=== PATIENT | female | born 1980 | race Caucasian/White ===

== ENCOUNTER 2017-10-06 16:19 | Inpatient (IN) | payer OTHER ==
[~2017-10-06] VITALS: Ht 165.1 cm; Wt 86.2 kg
[2017-10-06] MEDS ORDERED: PREN-546 PO (16:25)
[2017-10-06] MEDS ORDERED: TERBUTALINE 1 MG/ML VIAL SUBQ SCH (16:30)
[2017-10-06] MEDS ORDERED: TERBUTALINE 1 MG/ML VIAL SUBQ ONE (16:44)
[2017-10-06 17:04] LABS: BASOPHILS # (AUTO) 0.1 K/uL (0.00-0.22); BASOPHILS % (AUTO) 0.5 % (0.0-2.0); EOSINOPHILS % (AUTO) 0.3 % (0.0-4.0); HEMATOCRIT 37.4 % (36-48); HEMOGLOBIN 12.1 g/dL (12.0-16.0); LYMPHOCYTES % (AUTO) 8.7 % (20.5-51.1); MEAN CORPUSCULAR HEMOGLOBIN 28 pg (27-31); MEAN CORPUSCULAR HGB CONC 33 g/dL (33-37); MEAN CORPUSCULAR VOLUME 87.5 fL (80-94); MONOCYTES # (AUTO) 0.5 K/uL (0.8-1.0); MONOCYTES % (AUTO) 4.2 % (1.7-9.3); NEUTROPHILS # (AUTO) 10.1 K/uL (1.8-7.7); NEUTROPHILS % (AUTO) 86.3 % (42.2-75.2); PLATELET COUNT (AUTO) 216 K/uL (140-450); RED BLOOD CELL COUNT(AUTO) 4.27 MIL/uL (4.20-5.40); RED CELL DISTRIBUTION WIDTH 13.4 % (11.6-13.7); WHITE BLOOD COUNT (AUTO) 11.7 K/uL (4.8-10.8)
[2017-10-06] MEDS: LACTATED RINGERS 1,000 ML IV SCH (17:15)
[2017-10-06 17:30] LABS: PROTHROMBIN TIME 9.5 secs (10.8-13.4)
[2017-10-06 18:05] LABS: APPEARANCE,URINE CLEAR (CLEAR); BILIRUBIN,URINE NEGATIVE (NEGATIVE); BLOOD, URINE TRACE-I (NEGATIVE); COLOR,URINE YELLOW (YELLOW); LEUKOCYTE ESTERASE ,URINE NEGATIVE (NEGATIVE); NITRITE, URINE NEGATIVE (NEGATIVE); PH,URINE 6.5 (5.0-9.0); UGLUCOSE NEGATIVE (NEGATIVE)
[2017-10-06 18:16] LABS: RBC,URINE 11-20 (MOD) /HPF (0-5); WBC,URINE 6-15 (FEW) /HPF (0-5)
[2017-10-06] MEDS ORDERED: NALBUPHINE 10 MG/ML AMP IVP ONE (20:00)
[2017-10-06] MEDS ORDERED: BETAMETH ACET/BETAMETH NA PH 30 MG/5 ML VIAL IM ONE (22:48)
[2017-10-06] MEDS: BETAMETH ACET/BETAMETH NA PH 30 MG/5 ML VIAL IM SCH (22:55)
[2017-10-07] MEDS: LACTATED RINGERS 1,000 ML IV SCH ×4 (00:02→23:00)
[2017-10-07] MEDS ORDERED: NIFEdipine 10 MG CAPLF PO SCH (08:30)
[2017-10-07] MEDS ORDERED: NIFEdipine 10 MG CAPLF ONE ×4 (08:31→20:57)
[2017-10-07] MEDS: NIFEdipine 10 MG CAPLF PO SCH ×3 (09:35→21:35)
[2017-10-07] MEDS ORDERED: BETAMETH ACET/BETAMETH NA PH 30 MG/5 ML VIAL IM ONE (10:52)
[2017-10-07] MEDS: BETAMETH ACET/BETAMETH NA PH 30 MG/5 ML VIAL IM SCH (10:57)
[2017-10-07] MEDS ORDERED: ACETAMINOPHEN 325 MG TAB PO PRN (14:30)
[2017-10-07] MEDS ORDERED: ACETAMINOPHEN 325 MG TAB ONE (15:41)
[2017-10-08] MEDS: LACTATED RINGERS 1,000 ML IV SCH (05:45)
== END 2017-10-09 14:45 | disposition home or self-care (01) | DRG 563 ==
LOC: MLD 16:19 → OBSVTOIN 10-07 12:01 → MFCC 10-07 14:01
PROVIDERS: ADMIT Obstetrics & Gynecology; ATTEND Obstetrics & Gynecology
DX: O60.03 Preterm labor without delivery, third trimester (principal); O34.219 Maternal care for unspecified type scar from previous cesarean delivery; Z3A.35 35 weeks gestation of pregnancy
CPT/HCPCS: 36415; 76770; 76805; 81001; 85025; 85379; 85384; 85610; 85730; 86762; 87086; 87340; G0378; J0702; J3105; J7120; Q0092

== ENCOUNTER 2017-10-24 11:56 | Observation (INO) | payer OTHER ==
[~2017-10-24] VITALS: Ht 160 cm; Wt 81.2 kg
[~2017-10-24 11:56] MED LIST: PREN-546 PO
[2017-10-24] MEDS ORDERED: PREN-546 PO (12:18)
[2017-10-24] MEDS ORDERED: TERBUTALINE 1 MG/ML VIAL SUBQ ONE (13:48)
[2017-10-24] MEDS ORDERED: TERBUTALINE 1 MG/ML VIAL SUBQ SCH (14:05)
== END 2017-10-24 15:59 | disposition home or self-care (01) ==
LOC: MLD 11:56
PROVIDERS: ADMIT Obstetrics & Gynecology; ATTEND Obstetrics & Gynecology
DX: O26.893 Other specified pregnancy related conditions, third trimester (principal); R10.9 Unspecified abdominal pain; Z3A.36 36 weeks gestation of pregnancy
CPT/HCPCS: 59025; 76805; 76819; 81000; G0378; J3105; Q0092

== ENCOUNTER 2017-10-28 15:27 | Observation (INO) | payer OTHER ==
[2017-10-28 18:42] VITALS: BP 121/60
[2017-10-28] MEDS ORDERED: BRE5 PO (18:50)
== END 2017-10-28 19:25 | disposition home or self-care (01) ==
LOC: MLD 15:27
PROVIDERS: ADMIT Obstetrics & Gynecology; ATTEND Obstetrics & Gynecology
DX: O26.893 Other specified pregnancy related conditions, third trimester (principal); R10.9 Unspecified abdominal pain; Z3A.38 38 weeks gestation of pregnancy
CPT/HCPCS: 76815; G0378; Q0092; 51702; 81000

== ENCOUNTER 2017-11-01 08:15 | Inpatient (IN) | payer OTHER ==
[~2017-11-01] VITALS: Ht 165.1 cm; Wt 88.0 kg
[~2017-11-01 08:15] MED LIST changes: +BRE5 PO
[2017-11-01] MEDS ORDERED: LACTATED RINGERS 1,000 ML IV SCH (08:23)
[2017-11-01] MEDS ORDERED: CITRIC ACID/SODIUM CITRATE 30 ML UDC PO SCH (09:04)
[2017-11-01 10:31] LABS: BASOPHILS # (AUTO) 0.1 K/uL (0.00-0.22); BASOPHILS % (AUTO) 0.5 % (0.0-2.0); EOSINOPHILS # (AUTO) 0.2 K/uL (0-0.4); EOSINOPHILS % (AUTO) 1.7 % (0.0-4.0); HEMATOCRIT 35.3 % (36-48); HEMOGLOBIN 11.4 g/dL (12.0-16.0); LYMPHOCYTES # (AUTO) 2.4 K/uL (2.5-16.5); LYMPHOCYTES % (AUTO) 17.9 % (20.5-51.1); MEAN CORPUSCULAR HEMOGLOBIN 28 pg (27-31); MEAN CORPUSCULAR HGB CONC 32 g/dL (33-37); MEAN CORPUSCULAR VOLUME 87.4 fL (80-94); MONOCYTES # (AUTO) 0.7 K/uL (0.8-1.0); MONOCYTES % (AUTO) 5.1 % (1.7-9.3); NEUTROPHILS % (AUTO) 74.8 % (42.2-75.2); PLATELET COUNT (AUTO) 219 K/uL (140-450); RED BLOOD CELL COUNT(AUTO) 4.04 MIL/uL (4.20-5.40); RED CELL DISTRIBUTION WIDTH 13.9 % (11.6-13.7); WHITE BLOOD COUNT (AUTO) 13.4 K/uL (4.8-10.8)
[2017-11-01 10:53] LABS: APPEARANCE,URINE CLEAR (CLEAR); BILIRUBIN,URINE NEGATIVE (NEGATIVE); BLOOD, URINE NEGATIVE (NEGATIVE); COLOR,URINE YELLOW (YELLOW); LEUKOCYTE ESTERASE ,URINE NEGATIVE (NEGATIVE); NITRITE, URINE NEGATIVE (NEGATIVE); UGLUCOSE NEGATIVE (NEGATIVE)
[2017-11-01 10:58] LABS: ANION GAP 14.5 (8-16); CARBON DIOXIDE 23.4 mmol/L (21-32); CREATININE 0.5 mg/dL (0.6-1.3); POTASSIUM 3.9 mmol/L (3.5-5.1)
[2017-11-01 11:05] LABS: ALBUMIN 2.1 g/dL (3.4-5.0); TOTAL BILIRUBIN 0.2 mg/dL (0.0-1.0)
[2017-11-01 11:19] LABS: RBC,URINE NONE SEEN /HPF (0-5); WBC,URINE 0-5 (RARE) /HPF (0-5)
[2017-11-01] MEDS ORDERED: MORPHINE PRES FREE 2 MG/2 ML 2 mL UD SYRINGE ONE (11:43)
[2017-11-01] MEDS ORDERED: BUPIVACAINE/DEXT 0.75% SPINAL 2 ML AMP INJ ONE (11:43)
[2017-11-01] MEDS ORDERED: fentaNYL 0.05 MG/ML VIAL ONE (11:43)
[2017-11-01] MEDS ORDERED: ePHEDrine 50 MG/ML VIAL ONE (11:46)
[2017-11-01] MEDS ORDERED: ONDANSETRON 4 MG/2 ML VIAL IVP PRN ×2 (12:30)
[2017-11-01] MEDS ORDERED: KETOROLAC 30 MG/ML VIAL IVP PRN (12:30)
[2017-11-01] MEDS ORDERED: NALBUPHINE 10 MG/ML AMP IVP PRN (12:30)
[2017-11-01] MEDS ORDERED: NALOXONE 0.4 MG/ML VIAL IVP PRN ×3 (12:30)
[2017-11-01] MEDS ORDERED: diphenhydrAMINE 50 MG/ML VIAL IVP PRN (12:30)
[2017-11-01] MEDS ORDERED: OXYTOCIN 10 UNITS/ML VIAL ONE (13:02)
[2017-11-01] MEDS ORDERED: diphenhydrAMINE 50 MG/ML VIAL ONE (13:04)
[2017-11-01] MEDS ORDERED: ONDANSETRON 4 MG/2 ML VIAL ONE (14:07)
[2017-11-01] MEDS ORDERED: OXYTOCIN 20 UNITS in LACTATED RINGERS 1,000 ML IV SCH (14:17)
[2017-11-01] MEDS: OXYTOCIN 20 UNITS/LR PREMIX 1,000 ML IV ONE ×2 (14:18→14:30)
[2017-11-01] MEDS ORDERED: MEASLES, MUMPS, AND RUBELLA 1 VIAL SQVAC PRN (14:20)
[2017-11-01] MEDS ORDERED: HYDROmorphone 1 MG/ML AMP IVP PRN (14:20)
--- NOTE | 2017-11-02 08:31 | NUR ---
PATIENT HAS BEEN SCREENED AND CATEGORIZED LOW NUTRITION RISK. PATIENT WILL BE SEEN WITHIN 7 DAYS OF ADMISSION. 11/07/[address]
[2017-11-02 08:34] LABS: BASOPHILS % (AUTO) 0.3 % (0.0-2.0); EOSINOPHILS # (AUTO) 0.1 K/uL (0-0.4); EOSINOPHILS % (AUTO) 0.5 % (0.0-4.0); HEMATOCRIT 34.6 % (36-48); HEMOGLOBIN 11.1 g/dL (12.0-16.0); LYMPHOCYTES # (AUTO) 1.7 K/uL (2.5-16.5); LYMPHOCYTES % (AUTO) 11.1 % (20.5-51.1); MEAN CORPUSCULAR HEMOGLOBIN 28 pg (27-31); MEAN CORPUSCULAR HGB CONC 32 g/dL (33-37); MEAN CORPUSCULAR VOLUME 86.8 fL (80-94); MONOCYTES # (AUTO) 0.6 K/uL (0.8-1.0); MONOCYTES % (AUTO) 3.8 % (1.7-9.3); NEUTROPHILS # (AUTO) 13.3 K/uL (1.8-7.7); NEUTROPHILS % (AUTO) 84.3 % (42.2-75.2); PLATELET COUNT (AUTO) 209 K/uL (140-450); RED BLOOD CELL COUNT(AUTO) 3.98 MIL/uL (4.20-5.40); WHITE BLOOD COUNT (AUTO) 15.7 K/uL (4.8-10.8)
[2017-11-02] MEDS: KETOROLAC 30 MG/ML VIAL IVP PRN ×2 (13:48→22:39)
[2017-11-02] MEDS ORDERED: ACETAMINOPHEN 325 MG TAB PO PRN (20:00)
[2017-11-03] MEDS ORDERED: DOCUSATE SODIUM 100 MG GELCAP PO PRN (08:00)
[2017-11-03] MEDS ORDERED: SODIUM PHOSPHATE 118 ML ENEM RC PRN (08:00)
[2017-11-03] MEDS ORDERED: IBUPROFEN 600 MG TAB PO PRN (08:00)
[2017-11-03] MEDS ORDERED: BISACODYL 5 MG TABEC PO PRN (08:00)
[2017-11-03] MEDS ORDERED: SIMETHICONE 80 MG TAB.CHEW PO PRN (08:00)
[2017-11-03] MEDS: oxyCODONE/APAP 5/325 MG 1 TAB TAB PO PRN ×2 (09:11→19:00)
[2017-11-04] MEDS: oxyCODONE/APAP 5/325 MG 1 TAB TAB PO PRN ×2 (01:08→09:06)
[2017-11-05] MEDS ORDERED: IBUP-1842 PO (15:11)
== END 2017-11-05 16:30 | disposition home or self-care (01) | DRG 540 ==
LOC: MLD 08:15 → MFCC 14:09
PROVIDERS: ADMIT Obstetrics & Gynecology; ATTEND Obstetrics & Gynecology
PROC: 10D00Z1 Extraction of Products of Conception, Low, Open Approach (ICD-10-PCS; principal; 2017-11-01 11:50)
PROC: 0UL70ZZ Occlusion of Bilateral Fallopian Tubes, Open Approach (ICD-10-PCS; 2017-11-01 11:50)
DX: O34.211 Maternal care for low transverse scar from previous cesarean delivery (principal); Z30.2 Encounter for sterilization; Z37.0 Single live birth; Z3A.38 38 weeks gestation of pregnancy; Z28.21 Immunization not carried out because of patient refusal
CPT/HCPCS: 36415; 80053; 81001; 85025; 86592; 86886; 86900; 86901; 87081; 87086; 88302; J0690; J1200; J1885; J2270; J2405; J2590; J3010; J3490; J7060; J7120